=== PATIENT | male | born 1960 ===

== ENCOUNTER 2022-05-05 18:17 | Emergency (ER) | payer OTHER ==
[~2022-05-05] VITALS: Ht 182.9 cm; Wt 97.7 kg
[2022-05-05 18:52] LABS: BASOPHILS % (AUTO) 0.4 % (0-1); EOSINOPHILS # (AUTO) 0.3 X10'3 (0-0.9); EOSINOPHILS % (AUTO) 2.5 % (0-6); HEMATOCRIT 44.4 % (42.0-52.0); HEMOGLOBIN 14.8 g/dl (14.0-17.9); LYMPHOCYTES # (AUTO) 1.4 X10'3 (1.1-4.8); LYMPHOCYTES % (AUTO) 12.6 % (21-51); MEAN CORPUSCULAR HEMOGLOBIN 29.8 PG (27.0-31.0); MEAN CORPUSCULAR HGB CONC 33.3 g/dL (33.0-36.5); MEAN CORPUSCULAR VOLUME 89.6 FL (78-98); MEAN PLATELET VOLUME 7.5 FL (7.4-10.4); MONOCYTES # (AUTO) 0.8 X10'3 (0-0.9); MONOCYTES % (AUTO) 7.1 % (2-12); NEUTROPHILS # (AUTO) 8.7 X10'3 (1.8-7.7); NEUTROPHILS % (AUTO) 77.4 % (42-75); PLATELET COUNT 254 X10'3 (140-440); RED BLOOD COUNT 4.95 X10'6 (4.70-6.10); RED CELL DISTRIBUTION WIDTH 13.3 % (11.5-14.5); WHITE BLOOD COUNT 11.2 X10'3 (4.5-11.0)
[2022-05-05 19:22] LABS: ALANINE AMINOTRANSFERASE 99 U/L (12-78); ALBUMIN 3.7 G/DL (3.4-5.0); ALKALINE PHOSPHATASE 167 IU/L (46-116); ANION GAP 7 (8-16); ASPARTATE AMINO TRANSFERASE 38 U/L (10-37); BILIRUBIN,TOTAL 0.6 MG/DL (0.1-1.0); BLOOD UREA NITROGEN 13 MG/DL (7-18); BUN/CREATININE RATIO 11.3 (5.4-32.0); CALCIUM 8.9 MG/DL (8.5-10.1); CHLORIDE 102 MMOL/L (99-107); CREATININE 1.15 MG/DL (0.60-1.10); GLUCOSE 124 MG/DL (70-104); POTASSIUM 4.2 MMOL/L (3.5-5.1); SODIUM 139 MMOL/L (135-145); TOTAL CARBON DIOXIDE 29.9 MMOL/L (24-32); TOTAL PROTEIN 7.4 G/DL (6.4-8.2); eGFR 65 ML/MIN
[2022-05-05] MEDS ORDERED: azithromycin 250mg tablet PO ONE (19:55)
[2022-05-05] MEDS ORDERED: AZIT-31 PO (20:02)
[2022-05-05 20:56] VITALS: BP 145/78
--- NOTE | 2022-05-06 09:00 | NUR ---
PT CAME IN REQUESTING THAT THE RX THAT WAS GIVEN LAST EVENING FOR PT'S PNA BE SENT TO [facility] [address] DUE TO [facility] [address] IS "TEMPORALLY CLOSED" [facility] WAS CALLED AND THE PHARMICY IS OPEN PER THE OUTSOLE COMPRESSOR. ATTEMPTED TO CALL PT'S AND HER CELL PHONE IS "NOT ACCEPTING INCOMING PHONE CALLS AT THIS TIME" AND UNABLE TO LEAVE A MSG; THERE IS NO ALTERNATE PHONE # LISTED ON RECORD
--- NOTE | 2022-05-06 11:00 | NUR ---
ATTEMPTED TO CALL PT'S AGAIN REGARDING RX AT [facility] ON [address]. STILL UNABLE TO LEAVE A MSG.
--- NOTE | 2022-05-06 14:52 | NUR ---
ATTEMPTED TO CALL PT'S AGAIN. STILL UNABLE TO LEAVE A MSG
--- NOTE | 2022-05-06 15:29 | NUR ---
[facility] WAS CALLED AND PHARMACIST STATED THAT THE RX WAS RECEIVED AND IS BEING FILLED. PHARMACIST WILL CONTACT PT AND NOTIFIED.
== END 2022-05-05 20:57 | disposition home or self-care (01) ==
LOC: ER 18:18
DX: J18.9 Pneumonia, unspecified organism (principal); Z88.8 Allergy status to other drugs, medicaments and biological substances
CPT/HCPCS: 36415; 71045; 80053; 83880; 84484; 85025; 99284